=== PATIENT | male | born 1955 | race Caucasian/White ===

== ENCOUNTER 2017-12-01 04:14 | Emergency (ER) | payer OTHER ==
[~2017-12-01] VITALS: Ht 170.2 cm; Wt 88.2 kg
[~2017-12-01 04:14] MED LIST: ALBU8I INH; PROM6.257 PO
[2017-12-01 04:19] VITALS: BP 143/86; PULSE 74; TEMP 97.6; O2SAT 94
[2017-12-01] MEDS ORDERED: METOCLOPRAMIDE HCL 10 MG/2 ML VIAL IV PUSH ONE (04:45)
[2017-12-01 05:01] LABS: AUTOMATED NEUTROPHIL # 3.2 TH/MM3 (1.8-7.7); BASOPHIL # 0.1 TH/MM3 (0-0.2); BASOPHIL % 1.1 % (0.0-2.0); EOSINOPHIL # 0.3 TH/MM3 (0-0.4); EOSINOPHIL % 5.7 % (0.0-4.0); HEMATOCRIT 42.2 % (39.0-51.0); HEMOGLOBIN 14.4 GM/DL (13.0-17.0); LYMPH % 26.9 % (9.0-44.0); LYMPHOCYTE # 1.6 TH/MM3 (1.0-4.8); MEAN CELL VOLUME 91.1 FL (80.0-100.0); MEAN PLATELET VOLUME 6.7 FL (7.0-11.0); MONO % 11.7 % (0.0-8.0); MONOCYTE # 0.7 TH/MM3 (0-0.9); NEUT % 54.6 % (16.0-70.0); PLATELET COUNT 256 TH/MM3 (150-450); RED BLOOD COUNT 4.63 MIL/MM3 (4.50-5.90); RED CELL DISTRIBUTION WIDTH 12.5 % (11.6-17.2); WHITE BLOOD COUNT 5.9 TH/MM3 (4.0-11.0)
[2017-12-01 05:16] LABS: CALCIUM 7.7 MG/DL (8.5-10.1)
[2017-12-01 05:17] LABS: BICARBONATE 24.2 MEQ/L (21.0-32.0)
[2017-12-01 05:20] LABS: CREATININE 0.87 MG/DL (0.60-1.30)
--- NOTE | 2017-12-01 05:22 | RADRPT ---
EXAM DATE/TIME: 12/01/2017 04:53 [facility] COMPARISON: No previous studies available for comparison. INDICATIONS : Cough. MEDICAL HISTORY : None. SURGICAL HISTORY : None. ENCOUNTER: Initial ACUITY: 1 day PAIN SCORE: 0/10 LOCATION: Bilateral chest FINDINGS: A single view of the chest demonstrates the lungs to be symmetrically aerated without evidence of mas s, infiltrate or effusion. The cardiomediastinal contours are unremarkable. Mild atherosclerotic ca lcifications are noted in the aorta. Patient status post cholecystectomy. Osseous structures are inta ct. CONCLUSION: No acute disease. There is no evidence of pneumonia. Abhay Morales MD on December 01, 2017 at 5:21 Board Certified Radiologist. This report was verified electronically.
--- NOTE | 2017-12-01 05:24 | RADRPT ---
EXAM DATE/TIME: 12/01/2017 04:53 [facility] COMPARISON: No previous studies available for comparison. INDICATIONS : Cough. Patient states he feels like something is stuck in his throat. MEDICAL HISTORY : None. SURGICAL HISTORY : None. ENCOUNTER: Initial ACUITY: 1 day PAIN SCORE: 1/10 LOCATION: neck. FINDINGS: Two view examination of the soft tissues of the neck demonstrates the hypopharyngeal airway to have a grossly normal configuration. The trachea is midline. No radiopaque foreign bodies are seen. CONCLUSION: Unremarkable exam with no radiopaque foreign bodies. Abhay Morales MD on December 01, 2017 at 5:22 Board Certified Radiologist. This report was verified electronically.
[2017-12-01 05:29] VITALS: BP 126/77; PULSE 72; O2SAT 95
[2017-12-01] MEDS ORDERED: GLUCAGON 1 MG/ML VIAL IV PUSH ONE (05:30)
--- NOTE | 2017-12-01 05:37 | PD ---
HPI Chief Complaint: ENT Complaint Time Seen by Provider: 04:41 Travel History International Travel<30 days: No Contact w/Intl Traveler<30days: No Traveled to known affect area: No History of Present Illness HPI 62-year-old male presents to the emergency department for complaint of foreign body sensation to the throat or rawness to the throat. Patient states he has noticed this discomfort since 1 AM. Patient states he last ate or drank anything prior to this at dinnertime around 7 PM. Patient states he had no difficulty swallowing any of his food at dinnertime had no choking or choking event and awakened at 1 AM only to get up to go the bathroom to urinate and while he was awake noticed that he had some soreness or foreign body sensation to the posterior pharynx midline. Patient states he drank some water and drank some juice and he had no difficulty swallowing but had the sensation of a foreign body. Patient's had no hoarseness no stridor no difficulty breathing no shortness of breath no wheezing no cough clearing his throat does not provide any relief coughing is not providing relief of the sensation patient does report he has a history of a hiatal hernia and has belched before and refluxed food from his stomach. Patient denies having any burning sensation to the back of his throat patient did not awaken coughing or short of breath or choking. Patient states he felt well when he awakened but after being awake going to the bathroom noticed his symptoms. Patient states that he still has a sense of a foreign body. Discomfort/pain 12/19. PFSH Past Medical History Narrative Medical Hepatitis hiatal hernia cholecystectomy; occasional alcohol use; nursing notes reviewed Hepatitis: Yes Hiatal Hernia: Yes Tetanus Vaccination: > 5 Years Influenza Vaccination: No Past Surgical History Cholecystectomy: Yes Social History Alcohol Use: Yes ([facility]) Tobacco Use: No Substance Use: No Allergies-Medications (Allergen,Severity, Reaction): Coded Allergies: No Known Allergies (Verified Adverse Reaction, Unknown, 12/01/17) Reported Meds & Prescriptions Reported Meds & Active Scripts Active No Active Prescriptions or Reported Medications Review of Systems Except as stated in HPI: all other systems reviewed are Neg General / Constitutional: No: Fever, Chills HENT: Positive: Sore Throat, No: Congestion, Neck Stiffness, Neck Pain, Masses Cardiovascular: No: Chest Pain or Discomfort Respiratory: No: Shortness of Breath Gastrointestinal: No: Nausea, Vomiting, Abdominal Pain Genitourinary: No: Decreased Urinary Output Musculoskeletal: No: Myalgias, Arthralgias Skin: No Rash Neurologic: No: Weakness Psychiatric: No: Anxiety Hematologic/Lymphatic: No: Easy Bruising Physical Exam Narrative GENERAL: Well-developed well-nourished male no acute distress no respiratory distress no stridor SKIN: Warm and dry. HEAD: Normocephalic. EYES: No scleral icterus. No injection or drainage. NECK: Supple, trachea midline. No JVD or lymphadenopathy. CARDIOVASCULAR: Regular rate and rhythm without murmurs, gallops, or rubs. RESPIRATORY: Breath sounds equal bilaterally. No accessory muscle use. GASTROINTESTINAL: Abdomen soft, non-tender, nondistended. MUSCULOSKELETAL: No cyanosis, or edema. BACK: Nontender without obvious deformity. No CVA tenderness. Data Data Last Documented VS Vital Signs Date Time Temp Pulse Resp B/P (MAP) Pulse Ox O2 Delivery O2 Flow Rate FiO2 12/01/17 06:55 73 18 125/77 (93) 98 Room Air 12/01/17 04:19 97.6 Orders Orders Soft Tissue Neck (12/01/17 ) Chest, Single Ap (12/01/17 ) ^ Saline Lock (12/01/17 04:41) Metoclopramide Inj (Reglan Inj) (12/01/17 04:45) Complete Blood Count With Diff (12/01/17 04:41) Basic Metabolic Panel (Bmp) (12/01/17 04:41) Glucagon Inj (Glucagon Inj) (12/01/17 05:30) Ct Soft Tiss Neck W Iv Cont (12/01/17 ) Labs Laboratory Tests Test 12/01/17 04:45 White Blood Count 5.9 TH/MM3 Red Blood Count 4.63 MIL/MM3 Hemoglobin 14.4 GM/DL Hematocrit 42.2 % Mean Corpuscular Volume 91.1 FL Mean Corpuscular Hemoglobin 31.0 PG Mean Corpuscular Hemoglobin Concent 34.0 % Red Cell Distribution Width 12.5 % Platelet Count 256 TH/MM3 Mean Platelet Volume 6.7 FL Neutrophils (%) (Auto) 54.6 % Lymphocytes (%) (Auto) 26.9 % Monocytes (%) (Auto) 11.7 % Eosinophils (%) (Auto) 5.7 % Basophils (%) (Auto) 1.1 % Neutrophils # (Auto) 3.2 TH/MM3 Lymphocytes # (Auto) 1.6 TH/MM3 Monocytes # (Auto) 0.7 TH/MM3 Eosinophils # (Auto) 0.3 TH/MM3 Basophils # (Auto) 0.1 TH/MM3 CBC Comment DIFF FINAL Differential Comment Blood Urea Nitrogen 17 MG/DL Creatinine 0.87 MG/DL Random Glucose 104 MG/DL Calcium Level 7.7 MG/DL Sodium Level 139 MEQ/L Potassium Level 4.5 MEQ/L Chloride Level 108 MEQ/L Carbon Dioxide Level 24.2 MEQ/L Anion Gap 7 MEQ/L Estimat Glomerular Filtration Rate 89 ML/MIN MDM Medical Decision Making Medical Screen Exam Complete: Yes Emergency Medical Condition: Yes Medical Record Reviewed: Yes Interpretation(s) CBC & BMP Diagram 12/01/17 04:45 Calcium Level 7.7 L Vital Signs Date Time Temp Pulse Resp B/P (MAP) Pulse Ox O2 Delivery O2 Flow Rate FiO2 12/01/17 05:29 72 126/77 (93) 95 Room Air 12/01/17 04:19 97.6 74 143/86 (105) 94 Differential Diagnosis pharyngeal foreign body, retropharyngeal abscess, viral syndrome, aspirated foreign body Narrative Course Patient placed on dermatology nurse practitioner IV access obtained specimens collected and sent for resulting imaging studies ordered Soft tissue neck reveals no acute abnormality chest x-ray reveals no acute abnormality Patient given Reglan 10 mg IV with no symptomatic relief Patient given glucagon 1 mg IV with no symptomatic relief Patient sent for CT soft tissue neck with IV contrast to look for foreign body and abscess CT of the soft tissue the neck remains pending care signed over to oncoming physician Dr Colten Baez No Active Prescriptions or Reported Meds Rachel Bajwa MD Dec 01, 2017 05:37
[2017-12-01] MEDS ORDERED: IOHEXOL 350 MG/ML 10 ML VIAL (for RAD DIAG) IVCONTRAST ONE (06:32)
[2017-12-01 06:55] VITALS: BP 125/77; PULSE 73; RESP 18; O2SAT 98
--- NOTE | 2017-12-01 07:19 | RADRPT ---
EXAM DATE/TIME: 12/01/2017 06:31 [facility] COMPARISON: No previous studies available for comparison. INDICATIONS : Difficulty swallowing. Evaluate for foreign body versus abscess. IV CONTRAST: 100 cc Omnipaque 350 (iohexol) IV RADIATION DOSE: 15.31 CTDIvol (mGy) MEDICAL HISTORY : Hernia, hiatal. Hepatitis C. SURGICAL HISTORY : Cholecystectomy. ENCOUNTER: Initial ACUITY: 1 day PAIN SCALE: 3/10 LOCATION: neck TECHNIQUE: Volumetric scanning of the neck was performed. Using automated exposure control and adjustment of th e mA and/or kV according to patient size, radiation dose was kept as low as reasonably achievable to obtain optimal diagnostic quality images. DICOM format image data is available electronically for r eview and comparison. FINDINGS: NASOPHARYNX: The nasopharyngeal airway has a normal configuration. No mucosal thickening or mass is seen. OROPHARYNX: The intrinsic muscles of the tongue are symmetric. The tonsillar pillars demonstrate no acute abnorm ality. No abscess is seen. The prevertebral soft tissues are not thickened. LARYNX: The supraglottic, glottic, and infraglottic structures demonstrate no acute abnormality. SALIVARY GLANDS: The parotid and submandibular glands demonstrate no acute abnormality. LYMPH NODES: No enlarged or necrotic-appearing nodes. THYROID: Homogeneous enhancement without evidence of nodule. BONES: There are mild degenerative changes of the cervical spine. No radiopaque foreign body is identified. CONCLUSION: 1. No abscess or radiopaque foreign body is identified. 2. Overall, no acute finding is identified. Ruddy High MD on December 01, 2017 at 7:09 Board Certified Radiologist. This report was verified electronically.
[2017-12-01] MEDS ORDERED: ZANT150T2 PO (07:43)
[2017-12-01] MEDS ORDERED: REGL10TA5 PO (07:43)
--- NOTE | 2017-12-01 07:43 | PD ---
Physical Exam Date Seen by Provider: Dec 01, 2017 Time Seen by Provider: 07:00 Narrative Patient initially seen and evaluated by Dr. Bajwa, please see her notes for further details. Here with discomfort in his throat. He was given glucagon and Reglan in the ER. On reevaluation after CAT scan being and x-rays which were all on remarkable, at 7:40 AM, patient reports that the symptoms are feeling better. At this point, he is drinking fluids, appears to be doing well. There are no signs of angioedema or any signs of acute processes. At this point, my plan would be to release him with follow-up to primary care doctor. Return for worsening in symptoms as necessary. The plan has been discussed with him and he states understanding. Laboratory Tests Test 12/01/17 04:45 Mean Platelet Volume 6.7 FL (7.0-11.0) Monocytes (%) (Auto) 11.7 % (0.0-8.0) Eosinophils (%) (Auto) 5.7 % (0.0-4.0) Calcium Level 7.7 MG/DL (8.5-10.1) Chloride Level 108 MEQ/L (98-107) Last 24 hours Impressions Soft Tissue Neck X-Ray 12/01/17 0000 Signed Impressions: Service Date/Time: Friday, December 01, 2017 04:53 - CONCLUSION: Unremarkable exam with no radiopaque foreign bodies. Abhay Morales MD Neck CT 12/01/17 0000 Signed Impressions: Service Date/Time: Friday, December 01, 2017 06:31 - CONCLUSION: 1. No abscess or radiopaque foreign body is identified. 2. Overall, no acute finding is identified. Ruddy High MD Chest X-Ray 12/01/17 0000 Signed Impressions: Service Date/Time: Friday, December 01, 2017 04:53 - CONCLUSION: No acute disease. There is no evidence of pneumonia. Abhay Morales MD Data Data Last Documented VS Vital Signs Date Time Temp Pulse Resp B/P (MAP) Pulse Ox O2 Delivery O2 Flow Rate FiO2 12/01/17 06:55 73 18 125/77 (93) 98 Room Air 12/01/17 04:19 97.6 Orders Orders Soft Tissue Neck (12/01/17 ) Chest, Single Ap (12/01/17 ) ^ Saline Lock (12/01/17 04:41) Metoclopramide Inj (Reglan Inj) (12/01/17 04:45) Complete Blood Count With Diff (12/01/17 04:41) Basic Metabolic Panel (Bmp) (12/01/17 04:41) Glucagon Inj (Glucagon Inj) (12/01/17 05:30) Ct Soft Tiss Neck W Iv Cont (12/01/17 ) Iohexol 350 Inj (Omnipaque 350 Inj) (12/01/17 06:32) Ed Discharge Order (12/01/17 07:40) Labs Laboratory Tests Test 12/01/17 04:45 White Blood Count 5.9 TH/MM3 Red Blood Count 4.63 MIL/MM3 Hemoglobin 14.4 GM/DL Hematocrit 42.2 % Mean Corpuscular Volume 91.1 FL Mean Corpuscular Hemoglobin 31.0 PG Mean Corpuscular Hemoglobin Concent 34.0 % Red Cell Distribution Width 12.5 % Platelet Count 256 TH/MM3 Mean Platelet Volume 6.7 FL Neutrophils (%) (Auto) 54.6 % Lymphocytes (%) (Auto) 26.9 % Monocytes (%) (Auto) 11.7 % Eosinophils (%) (Auto) 5.7 % Basophils (%) (Auto) 1.1 % Neutrophils # (Auto) 3.2 TH/MM3 Lymphocytes # (Auto) 1.6 TH/MM3 Monocytes # (Auto) 0.7 TH/MM3 Eosinophils # (Auto) 0.3 TH/MM3 Basophils # (Auto) 0.1 TH/MM3 CBC Comment DIFF FINAL Differential Comment Blood Urea Nitrogen 17 MG/DL Creatinine 0.87 MG/DL Random Glucose 104 MG/DL Calcium Level 7.7 MG/DL Sodium Level 139 MEQ/L Potassium Level 4.5 MEQ/L Chloride Level 108 MEQ/L Carbon Dioxide Level 24.2 MEQ/L Anion Gap 7 MEQ/L Estimat Glomerular Filtration Rate 89 ML/MIN [facility] Medical Record Reviewed: Yes Supervised Visit with AUGUSTIN: No Diagnosis Primary Impression: Throat irritation Med/Other Pt SpecificInfo: Prescription(s) given Scripts Metoclopramide (Reglan) 10 Mg Tab 10 MG PO QID Y for NAUSEA OR VOMITING, #12 TAB 0 Refills Prov: Jean Cristina MD 12/01/17 Ranitidine (Zantac) 150 Mg Tab 150 MG PO BID for Reduce Stomach Acid, #10 TAB 0 Refills Prov: Jean Cristina MD 12/01/17 Disposition: 01 DISCHARGE HOME Condition: Stable Jean Cristina MD Dec 01, 2017 07:43
== END 2017-12-01 07:56 | disposition home or self-care (01) ==
LOC: PHED 04:14
DX: R09.89 Other specified symptoms and signs involving the circulatory and respiratory systems (principal); R07.0 Pain in throat
CPT/HCPCS: 70360; 70491; 71045; 80048; 85025; 96374; 96375; 99285; J1610; J2765; Q9967